=== PATIENT | male | born 1960 | race Two or more races ===

== ENCOUNTER 2018-09-15 19:11 | Emergency (ER) | payer MEDICARE, OTHER ==
[~2018-09-15] VITALS: Ht 170.2 cm; Wt 116.6 kg
[2018-09-15 20:21] LABS: BILIRUBIN,URINE NEGATIVE (NEG); CLARITY,URINE CLEAR; COLOR,URINE YELLOW; NITRITE,URINE NEGATIVE (NEG); PROTEIN,URINE NEGATIVE (NEG-TRACE); UROBILINOGEN,URINE 0.2 mg/dL (0.2 mg/dL)
[2018-09-15 20:43] LABS: RBC,URINE OCC /HPF (0-2)
[2018-09-15 20:44] LABS: BACTERIA,URINE 0 /HPF (0-FEW); SQUAMOUS EPITHELIAL CELL,UR FEW /LPF; WBC,URINE OCC /HPF (0-4)
[2018-09-15 20:52] LABS: BASO # 0.1 x10^3/uL (0.0-0.2); BASO % 1 % (0-3); EOS # 0.1 x10^3/uL (0.0-0.7); EOS % 1 % (0-3); HEMATOCRIT 39.8 % (39.0-53.0); HEMOGLOBIN 13.9 g/dL (13.0-17.5); LYMPH # 1.8 x10^3/uL (1.0-4.8); LYMPH % 19 % (24-48); MEAN CORPUSCULAR HEMOGLOBIN 31 pg (25-35); MEAN CORPUSCULAR HGB CONC 35 g/dL (31-37); MEAN CORPUSCULAR VOLUME 90 fL (79-100); MONO # 0.9 x10^3/uL (0.0-1.1); MONO % 9 % (0-9); NEUT # 6.4 x10^3uL (1.8-7.7); NEUT % 70 % (31-73); PLATELET COUNT 282 x10^3/uL (140-400); RED BLOOD COUNT 4.41 x10^6/uL (4.30-5.70); RED CELL DISTRIBUTION WIDTH 13.3 % (11.5-14.5); WHITE BLOOD COUNT 9.2 x10^3/uL (4.0-11.0)
[2018-09-15 21:07] LABS: CALCIUM 9.5 mg/dL (8.5-10.1); GFR 76.5
[2018-09-15 21:12] LABS: ALBUMIN 3.7 g/dL (3.4-5.0); DIRECT BILIRUBIN 0.1 mg/dL (0.0-0.2); TOTAL BILIRUBIN 0.3 mg/dL (0.2-1.0); TOTAL PROTEIN 7.5 g/dL (6.4-8.2)
--- NOTE | 2018-09-15 22:25 | RAD ---
LIMITED ABDOMINAL ULTRASOUND History: Right upper quadrant pain. Comparison: None. Procedure: Transabdominal ultrasound images are obtained. Findings: Examination is technically difficult secondary to patient body habitus and bowel gas. Pancreas is obscured by bowel gas. Liver is increased in echogenicity. No focal hepatic masses are identified. Right hepatic lobe measures 18.7 cm in length. Gallbladder demonstrates cholelithiasis. No gallbladder wall thickening or pericholecystic fluid is identified. Common bile duct measures normally at 5 mm in diameter. Right kidney measures 11.5 cm in length. There is no evidence of stone or hydronephrosis. IVC is poorly visualized. Impression: 1. Technically difficult study. 2. Echogenic, enlarged liver, compatible with fatty liver disease. 3. Cholelithiasis without evidence of cholecystitis. Electronically signed by: Saul Cardenas MD (09/15/2018 10:21 PM) [facility]
--- NOTE | 2018-09-15 22:49 | RAD ---
CT abdomen pelvis without intravenous contrast History: Right abdominal pain radiating to back. Comparison: CT abdomen pelvis October 12, 2010. Technique: CT of the abdomen and pelvis was performed without intravenous or oral contrast. Exposure: One or more of the following individualized dose reduction techniques were utilized for this examination: 1. Automated exposure control 2. Adjustment of the mA and/or kV according to patient size 3. Use of iterative reconstruction technique Findings: Evaluation of solid organs is limited by lack of intravenous contrast. Evaluation of enteric structures may be limited by lack of oral contrast. Liver, spleen, pancreas, and bilateral adrenal glands are unremarkable. Cholelithiasis is seen. Bilateral kidneys and ureters are free stone or obstruction. Urinary bladder is unremarkable. No free air or free fluid is seen in the abdomen or pelvis. Appendix is without evidence of inflammation. Multilevel degeneration is seen in the spine including degenerative disc disease at L5-S1. Impression: No acute abnormality identified in the abdomen or pelvis. No evidence of urinary stone. Electronically signed by: Saul Cardenas MD (09/15/2018 10:46 PM) [facility]
[2018-09-15] MEDS ORDERED: ESOM40CA PO (23:39)
[2018-09-15] MEDS ORDERED: HYDR-971 PO (23:39)
[2018-09-15 23:49] VITALS: BP 138/64
--- NOTE | 2018-09-16 00:37 | PHYS DOC ---
Past Medical History Past Medical History: Arthritis, High Cholesterol, Hypertension, Hepatitis, Other Additional Past Medical Histor: HEP C Past Surgical History: Other Additional Past Surgical Histo: HERNIA REPAIR X 3, ABD TUMOR, ESOPHAGEAL ULCER Alcohol Use: None Drug Use: None Adult General Chief Complaint Chief Complaint: FLANK PAIN HPI HPI Patient is a 58 year old male who presents with abdominal pain. The patient has been having abdominal pain which is primarily on the right side of his abdomen and the right flank over the last 2-3 weeks. Pain is been constant but has waxed and waned in intensity. He states the pain is not always worse with eating food that sometimes eating does worsen his symptoms. The patient has had no fever or chills. No nausea or vomiting. Denies blood in his urine or any other urinary complaint. The patient does have a known history of cholelithiasis but has not had cholecystitis diagnosed in the past. He is in the process of establishing care with a surgeon for an elective cholecystectomy. He denies chest pain, shortness of breath, dizziness. Review of Systems Review of Systems Constitutional: Denies fever or chills Eyes: Denies change in visual acuity HENT: Denies nasal congestion Respiratory: Denies cough or shortness of breath Cardiovascular: No additional information not addressed in HPI GI: Denies nausea or vomiting : Denies dysuria Musculoskeletal: Denies back pain Integument: Denies rash or skin lesions Neurologic: Denies headache Endocrine: Denies polyuria All other systems were reviewed and found to be within normal limits, except as documented in this note. Allergies Allergies Allergies Coded Allergies Type Severity Reaction Last Updated Verified Penicillins Allergy Intermediate 09/15/18 Yes iodine Allergy Intermediate 09/15/18 Yes Physical Exam Physical Exam Constitutional: Well developed, well nourished, no acute distress HENT: Normocephalic, atraumatic, bilateral external ears normal, oropharynx moist Eyes: PERRLA, EOMI Neck: Normal range of motion, no tenderness Cardiovascular:Heart rate regular rhythm, no murmur Lungs & Thorax: Bilateral breath sounds clear to auscultation Abdomen: Bowel sounds normal, soft, NTTP, no guarding or rebound Skin: Warm, dry, no erythema, no rash Back: No tenderness Extremities: No tenderness, no edema Neurologic: Alert and oriented X 3 Psychologic: Affect normal Current Patient Data Vital Signs Vital Signs Date Time Temp Pulse Resp B/P (MAP) Pulse Ox O2 Delivery O2 Flow Rate FiO2 09/15/18 20:00 97.7 80 20 162/75 (104) 97 Room Air 97.7 Lab Values Laboratory Tests Test 09/15/18 20:08 09/15/18 20:34 Urine Collection Type Unknown Urine Color Yellow Urine Clarity Clear Urine pH 7.0 Urine Specific [place] 1.015 Urine Protein Negative mg/dL (NEG-TRACE) Urine Glucose (UA) Negative mg/dL (NEG) Urine Ketones (Stick) Negative mg/dL (NEG) Urine Blood Negative (NEG) Urine Nitrite Negative (NEG) Urine Bilirubin Negative (NEG) Urine Urobilinogen Dipstick 0.2 mg/dL (0.2 mg/dL) Urine Leukocyte Esterase Negative (NEG) Urine RBC Occ /HPF (0-2) Urine WBC Occ /HPF (0-4) Urine Squamous Epithelial Cells Few /LPF Urine Bacteria 0 /HPF (0-FEW) Urine Mucus Slight /LPF White Blood Count 9.2 x10^3/uL (4.0-11.0) Red Blood Count 4.41 x10^6/uL (4.30-5.70) Hemoglobin 13.9 g/dL (13.0-17.5) Hematocrit 39.8 % (39.0-53.0) Mean Corpuscular Volume 90 fL (79-100) Mean Corpuscular Hemoglobin 31 pg (25-35) Mean Corpuscular Hemoglobin Concent 35 g/dL (31-37) Red Cell Distribution Width 13.3 % (11.5-14.5) Platelet Count 282 x10^3/uL (140-400) Neutrophils (%) (Auto) 70 % (31-73) Lymphocytes (%) (Auto) 19 % (24-48) L Monocytes (%) (Auto) 9 % (0-9) Eosinophils (%) (Auto) 1 % (0-3) Basophils (%) (Auto) 1 % (0-3) Neutrophils # (Auto) 6.4 x10^3uL (1.8-7.7) Lymphocytes # (Auto) 1.8 x10^3/uL (1.0-4.8) Monocytes # (Auto) 0.9 x10^3/uL (0.0-1.1) Eosinophils # (Auto) 0.1 x10^3/uL (0.0-0.7) Basophils # (Auto) 0.1 x10^3/uL (0.0-0.2) Sodium Level 139 mmol/L (136-145) Potassium Level 4.0 mmol/L (3.5-5.1) Chloride Level 102 mmol/L (98-107) Carbon Dioxide Level 29 mmol/L (21-32) Anion Gap 8 (6-14) Blood Urea Nitrogen 18 mg/dL (8-26) Creatinine 1.0 mg/dL (0.7-1.3) Estimated GFR (Cockcroft-Gault) 76.5 Glucose Level 110 mg/dL (70-99) H Calcium Level 9.5 mg/dL (8.5-10.1) Total Bilirubin 0.3 mg/dL (0.2-1.0) Direct Bilirubin 0.1 mg/dL (0.0-0.2) Aspartate Amino Transferase (AST) 27 U/L (15-37) Alanine Aminotransferase (ALT) 37 U/L (16-63) Alkaline Phosphatase 78 U/L (46-116) Total Protein 7.5 g/dL (6.4-8.2) Albumin 3.7 g/dL (3.4-5.0) Lipase 207 U/L (73-393) Laboratory Tests 09/15/18 20:34 Laboratory Tests 09/15/18 20:34 EKG EKG [] Radiology/Procedures Radiology/Procedures RUQ US: cholelithiasis without cholecystitis. Fatty liver CT abd/pelvis: no acute findings to explain his pain. Course & Med Decision Making Course & Med Decision Making Pertinent Labs and Imaging studies reviewed. (See chart for details) Patient was evaluated in the emergency department for abdominal pain. His abdominal exam was benign. The patient was found to have cholelithiasis but no cholecystitis. He was also noted to have fatty liver. CT scan was completed without contrast because the patient has an iodine allergy. There were no additional acute findings on the CT scan to explain his pain symptoms. Plan is for discharge home. The patient is given some Arvilla for severe pain although he did not require pain medication in the ER for control of his symptoms. He is also placed on twice a day Nexium dosing and referred to follow up with gastroenterology. He already has surgery appointment pending. He is advised to come back to the ER for any new or worsening symptoms. Dragon Disclaimer Dragon Disclaimer This electronic medical record was generated, in whole or in part, using a voice recognition dictation system. Departure Departure Impression: Primary Impression: Gall stones Additional Impression: Abdominal pain Disposition: 01 HOME, SELF-CARE Condition: GOOD Referrals: DEBRA CODY MD Patient Instructions: Abdominal Pain (Nonspecific), Gastritis, Adult, Easy-to- Read, Cholelithiasis, [id number], Pain Medicine Instructions, [id number] Scripts Esomeprazole Magnesium (NEXIUM CAPSULE) 40 Mg Capsule. 1 CAP PO BIDAC, #60 CAP 1 Refill Prov: UZAIR MELO DO 09/15/18 Hydrocodone/Apap 5-325 (NORCO 5-325 TABLET) 1 Each Tablet 1-2 EACH PO PRN Q6HRS PRN for severe pain, #15 as needed for pain Prov: UZAIR MELO DO 09/15/18 Problem Qualifiers UZAIR MELO DO Sep 16, 2018 00:37
== END 2018-09-15 23:55 | disposition home or self-care (01) ==
LOC: ER 19:11
DX: K80.20 Calculus of gallbladder without cholecystitis without obstruction (principal); K76.0 Fatty (change of) liver, not elsewhere classified; I10 Essential (primary) hypertension; E78.00 Pure hypercholesterolemia, unspecified; Z98.890 Other specified postprocedural states; Z86.19 Personal history of other infectious and parasitic diseases; Z87.19 Personal history of other diseases of the digestive system; Z88.0 Allergy status to penicillin; Z91.041 Radiographic dye allergy status
CPT/HCPCS: 36415; 74176; 76705; 80048; 80076; 81001; 83690; 85025; 99285

== ENCOUNTER 2019-03-04 07:32 | Inpatient (IN) | payer OTHER ==
[2019-03-04] VITALS (9 sets, daily range): BP systolic 117–145; BP diastolic 60–73
[~2019-03-04] VITALS: Ht 175.3 cm; Wt 120.2 kg
--- NOTE | 2019-03-04 07:08 | HP ---
ADMIT DATE: HISTORY OF PRESENT ILLNESS: The patient comes to me, referred by Dr. Hogan because of bloating, postprandial gas and general abdominal discomfort in the upper abdomen. The patient states this has been going on for a while. He has had colonoscopy, which was essentially normal and has this bloating and gas sensation mostly after he eats. He has had a sonogram, which showed gallstones. The history is pertinent in that he has had normal childhood diseases. He has had mesenteric enteritis, has been operated twice for that, though I do not think anything was done other than explore and biopsy. He did have a hernia after that, one done at [facility] and I repaired that. He has also had a terrific injury to his right forearm, which he has had surgery many-many years ago and his hand is a little weak, but it otherwise functions normally. ALLERGIES: THE PATIENT HAS AN ALLERGY TO PENICILLIN AND IODINE. MEDICATIONS: Does take medicine for hypertension and he also takes 125 mcg of levothyroxine. He is not certain why. He does not have a goiter. FAMILY HISTORY: Positive in that his mother had gallstones and just had surgery recently. Otherwise, no history. He does not speak Indonesian well. We got this by way of a straightener gun parts with his . SOCIAL HISTORY: He did drink a lot, was apparently drunk, but he has stopped, has cirrhosis of the liver, but does not do that anymore. PHYSICAL EXAMINATION: GENERAL: Shows an obese male in no acute distress. He was alert, oriented and had no other abnormalities at this point. HEAD, EYES, EARS, NOSE, THROAT: Grossly normal. CHEST: Clear to auscultation bilaterally. HEART: I did not hear a murmur, but the rate did appear to be slow to me, estimated to be around 60-65 beats per minute. ABDOMEN: He had the scars of previous surgery, was soft. At this point, he had no point tenderness. No localized tenderness, guarding or rebound. Bowel sounds were normal. RECTAL: Not done. EXTREMITIES: Unremarkable except for the right forearm where he had significant surgery and has scars from that. Right hand is just a little weak, but otherwise function relatively normal. IMPRESSION: 1. Hypertension. 2. I assumed hypothyroidism. 3. Obesity. 4. Mesenteric enteritis, which is why he had abdominal surgery first. 5. Chronic cholecystitis and cholelithiasis. WATSON PEREZ MD DR: JEZ/linda JOB#: [id number] / [id number] [id number]
[~2019-03-04 07:32] MED LIST: BUPIVACAINE-EPI 0.25%-1:200000 MPF 30 ML VIAL. ONE; ESOM40CA PO; HYDR-3164 PO; HYDROmorphone 2 MG/ML VIAL IV PRN; IV RINGERS,LACTATED 1000ML 1,000 ML IV SCH; LEVO125T5 PO; LIDOCAINE 1% PF 2 ML VIAL. ID PRN; LOSA-73 PO; MORPHINE SULFATE 2 MG/ML VIAL. IV PRN; ONDANSETRON PF 4 MG/2 ML VIAL. IV PRN; PROCHLORPERAZINE 10 MG/2 ML VIAL. IV PRN; fentaNYL PF VIAL 100 MCG/2 ML VIAL IV PRN
[2019-03-04] MEDS ORDERED: CLINDAMYCIN 900MG PREMIX 50 ML IV ONE (08:15)
[2019-03-04 08:28] LABS: BASO # 0.1 x10^3/uL (0.0-0.2); BASO % 1 % (0-3); EOS # 0.2 x10^3/uL (0.0-0.7); EOS % 2 % (0-3); HEMATOCRIT 41.2 % (39.0-53.0); HEMOGLOBIN 13.6 g/dL (13.0-17.5); LYMPH # 2.1 x10^3/uL (1.0-4.8); LYMPH % 23 % (24-48); MEAN CORPUSCULAR HEMOGLOBIN 30 pg (25-35); MEAN CORPUSCULAR HGB CONC 33 g/dL (31-37); MEAN CORPUSCULAR VOLUME 92 fL (79-100); MONO # 0.7 x10^3/uL (0.0-1.1); MONO % 7 % (0-9); NEUT # 6.4 x10^3uL (1.8-7.7); NEUT % 68 % (31-73); PLATELET COUNT 276 x10^3/uL (140-400); RED BLOOD COUNT 4.49 x10^6/uL (4.30-5.70); WHITE BLOOD COUNT 9.5 x10^3/uL (4.0-11.0)
[2019-03-04] MEDS ORDERED: MIDAZOLAM HCL/PF 2 MG/2 ML VIAL. ONE (08:30)
[2019-03-04] MEDS ORDERED: ROCURONIUM 50 MG/5 ML VIAL. ONE ×2 (08:30→10:43)
[2019-03-04] MEDS ORDERED: DEXAMETHASONE SOD PHOS 20 MG/5 ML VIAL. ONE (08:30)
[2019-03-04] MEDS ORDERED: LIDOCAINE 2% PF 5 ML VIAL. ONE (08:30)
[2019-03-04] MEDS ORDERED: fentaNYL PF VIAL 100 MCG/2 ML VIAL ONE (08:30)
[2019-03-04] MEDS ORDERED: PROPOFOL 20 ML IV ONE (08:30)
[2019-03-04] MEDS ORDERED: ONDANSETRON PF 4 MG/2 ML VIAL. ONE (08:30)
--- NOTE | 2019-03-04 08:37 | PDOC ---
SURGICAL PROGRESS NOTE Subjective Surgeon..............................Souleymane Preop Diagnosis..................chronic Cholecystitis and Cholelithiasis Postop Diagnosis.................same Anesthesia..........................general Procedure...........................cholecystectomy with op cholangiogram with massive enterolysis Blood loss...........................25 cc Drains.................................none Fluids.................................see anesthesia sheet Condition............................satisfactory Vital Signs Vital Signs Date Time Temp Pulse Resp B/P (MAP) Pulse Ox O2 Delivery O2 Flow Rate FiO2 03/04/19 08:02 97.0 64 20 154/69 97 Room Air 97.0 WATSON PEREZ MD Mar 04, 2019 08:37
[2019-03-04 08:41] LABS: PROTHROMBIN TIME PATIENT 12.5 SEC (11.7-14.0)
[2019-03-04 08:51] LABS: CALCIUM 8.6 mg/dL (8.5-10.1); CREATININE 1.1 mg/dL (0.7-1.3); GFR 68.5; POTASSIUM 4.1 mmol/L (3.5-5.1)
[2019-03-04] MEDS: IOHEXOL 300 MG/ML 100ML VIAL. ONE ×2 (08:56→12:54)
[2019-03-04 08:58] LABS: ALBUMIN 3.8 g/dL (3.4-5.0); ALBUMIN/GLOBULIN RATIO 1.2 (1.0-1.7); TOTAL BILIRUBIN 0.3 mg/dL (0.2-1.0); TOTAL PROTEIN 6.9 g/dL (6.4-8.2)
[2019-03-04] MEDS ORDERED: SUCCINYLCHOLINE 200 MG/10 ML VIAL. ONE (08:59)
--- NOTE | 2019-03-04 09:24 | PDOC ---
SURGICAL PROGRESS NOTE Subjective No change in dictated H&P. Vital Signs Vital Signs Date Time Temp Pulse Resp B/P (MAP) Pulse Ox O2 Delivery O2 Flow Rate FiO2 03/04/19 08:02 97.0 64 20 154/69 97 Room Air 97.0 Labs Laboratory Tests Test 03/04/19 08:12 White Blood Count 9.5 x10^3/uL (4.0-11.0) Red Blood Count 4.49 x10^6/uL (4.30-5.70) Hemoglobin 13.6 g/dL (13.0-17.5) Hematocrit 41.2 % (39.0-53.0) Mean Corpuscular Volume 92 fL (79-100) Mean Corpuscular Hemoglobin 30 pg (25-35) Mean Corpuscular Hemoglobin Concent 33 g/dL (31-37) Red Cell Distribution Width 14.0 % (11.5-14.5) Platelet Count 276 x10^3/uL (140-400) Neutrophils (%) (Auto) 68 % (31-73) Lymphocytes (%) (Auto) 23 % (24-48) Monocytes (%) (Auto) 7 % (0-9) Eosinophils (%) (Auto) 2 % (0-3) Basophils (%) (Auto) 1 % (0-3) Neutrophils # (Auto) 6.4 x10^3uL (1.8-7.7) Lymphocytes # (Auto) 2.1 x10^3/uL (1.0-4.8) Monocytes # (Auto) 0.7 x10^3/uL (0.0-1.1) Eosinophils # (Auto) 0.2 x10^3/uL (0.0-0.7) Basophils # (Auto) 0.1 x10^3/uL (0.0-0.2) Prothrombin Time 12.5 SEC (11.7-14.0) Prothromb Time International Ratio 1.0 (0.8-1.1) Sodium Level 140 mmol/L (136-145) Potassium Level 4.1 mmol/L (3.5-5.1) Chloride Level 103 mmol/L (98-107) Carbon Dioxide Level 24 mmol/L (21-32) Anion Gap 13 (6-14) Blood Urea Nitrogen 17 mg/dL (8-26) Creatinine 1.1 mg/dL (0.7-1.3) Estimated GFR (Cockcroft-Gault) 68.5 BUN/Creatinine Ratio 15 (6-20) Glucose Level 115 mg/dL (70-99) Calcium Level 8.6 mg/dL (8.5-10.1) Total Bilirubin 0.3 mg/dL (0.2-1.0) Aspartate Amino Transf (AST/SGOT) 22 U/L (15-37) Alanine Aminotransferase (ALT/SGPT) 30 U/L (16-63) Alkaline Phosphatase 95 U/L (46-116) Total Protein 6.9 g/dL (6.4-8.2) Albumin 3.8 g/dL (3.4-5.0) Albumin/Globulin Ratio 1.2 (1.0-1.7) Laboratory Tests Test 03/04/19 08:12 White Blood Count 9.5 x10^3/uL (4.0-11.0) Red Blood Count 4.49 x10^6/uL (4.30-5.70) Hemoglobin 13.6 g/dL (13.0-17.5) Hematocrit 41.2 % (39.0-53.0) Mean Corpuscular Volume 92 fL (79-100) Mean Corpuscular Hemoglobin 30 pg (25-35) Mean Corpuscular Hemoglobin Concent 33 g/dL (31-37) Red Cell Distribution Width 14.0 % (11.5-14.5) Platelet Count 276 x10^3/uL (140-400) Neutrophils (%) (Auto) 68 % (31-73) Lymphocytes (%) (Auto) 23 % (24-48) Monocytes (%) (Auto) 7 % (0-9) Eosinophils (%) (Auto) 2 % (0-3) Basophils (%) (Auto) 1 % (0-3) Neutrophils # (Auto) 6.4 x10^3uL (1.8-7.7) Lymphocytes # (Auto) 2.1 x10^3/uL (1.0-4.8) Monocytes # (Auto) 0.7 x10^3/uL (0.0-1.1) Eosinophils # (Auto) 0.2 x10^3/uL (0.0-0.7) Basophils # (Auto) 0.1 x10^3/uL (0.0-0.2) Prothrombin Time 12.5 SEC (11.7-14.0) Prothromb Time International Ratio 1.0 (0.8-1.1) Sodium Level 140 mmol/L (136-145) Potassium Level 4.1 mmol/L (3.5-5.1) Chloride Level 103 mmol/L (98-107) Carbon Dioxide Level 24 mmol/L (21-32) Anion Gap 13 (6-14) Blood Urea Nitrogen 17 mg/dL (8-26) Creatinine 1.1 mg/dL (0.7-1.3) Estimated GFR (Cockcroft-Gault) 68.5 BUN/Creatinine Ratio 15 (6-20) Glucose Level 115 mg/dL (70-99) Calcium Level 8.6 mg/dL (8.5-10.1) Total Bilirubin 0.3 mg/dL (0.2-1.0) Aspartate Amino Transf (AST/SGOT) 22 U/L (15-37) Alanine Aminotransferase (ALT/SGPT) 30 U/L (16-63) Alkaline Phosphatase 95 U/L (46-116) Total Protein 6.9 g/dL (6.4-8.2) Albumin 3.8 g/dL (3.4-5.0) Albumin/Globulin Ratio 1.2 (1.0-1.7) WATSON PEREZ MD Mar 04, 2019 09:24
[2019-03-04] MEDS ORDERED: ePHEDrine PF IN SALINE 50 MG/10 ML SYRINGE. IV ONE (09:39)
[2019-03-04] MEDS ORDERED: MORPHINE SULFATE 10 MG/ML VIAL. ONE (10:43)
[2019-03-04] MEDS ORDERED: SEVOFLURANE > 120 MINUTES. IH ONE (10:46)
[2019-03-04] MEDS ORDERED: GLYCOPYRROLATE 1 MG/5 ML VIAL. ONE (10:46)
[2019-03-04] MEDS ORDERED: KETOROLAC 30 MG/ML INJ FOR OR. INJ ONE (10:46)
[2019-03-04] MEDS ORDERED: NEOSTIGMINE METHYLSULFATE 5 MG/5 ML SYRINGE. ONE (10:47)
[2019-03-04] MEDS ORDERED: BUPIVACAINE-EPI 0.25%-1:200000 MPF 30 ML VIAL. ONE ×2 (11:34→11:37)
--- NOTE | 2019-03-04 11:54 | RAD ---
Intraoperative cholangiogram, 2 views, 03/04/2019: HISTORY: Cholecystectomy 2 spot films from surgery are presented for review. 0.17 minutes of fluoroscopy time was utilized. Contrast has been injected into the cystic duct remnant. There is good flow contrast into the duodenum at the ampulla. No filling defect is seen in the common duct to suggest a retained calculus. The incompletely opacified intrahepatic ducts are unremarkable. IMPRESSION: No significant abnormality is detected. Electronically signed by: Rico Hood MD (03/04/2019 11:50 AM) [facility]
[2019-03-04] MEDS ORDERED: ONDANSETRON PF 4 MG/2 ML VIAL. IV PRN (13:30)
[2019-03-04] MEDS ORDERED: 0.9 % SODIUM CHLORIDE 10 ML DISP.SYRIN. IV PRN (13:30)
[2019-03-04] MEDS ORDERED: KETOROLAC 15 MG/ML VIAL. IV PRN (13:30)
[2019-03-04] MEDS: POTASSIUM CL 20MEQ-0.45% NACL 1,000 ML IV SCH ×2 (14:38→20:29)
--- NOTE | 2019-03-04 15:00 | NUR ---
Pt arrived to unit at 1425, by bed, from PACU. Report received from JAMESON Gutierrez. Pt's spouse present on admission. Bed in low position, call light in reach, [place] catheter present, patent, draining clear yellow urine. Large dressing to abdomen CDI, binder set at bedside, will assist Pt to put it on once he is more alert and awake. NG to R nare clamped and secured. Pt to be NPO, IVFs infusing. Dr Victor called to notify of consult for medical management. Admission assessment in progress.
[2019-03-04] MEDS: CLINDAMYCIN 600MG PREMIX 50 ML IV SCH (17:24)
[2019-03-04] MEDS: FAMOTIDINE 20 MG/2 ML VIAL IVP SCH (20:30)
[2019-03-04] MEDS: PHENOL ORAL SPRAY 177ML BOTTLE. PO PRN (22:25)
[2019-03-05] MEDS: CLINDAMYCIN 600MG PREMIX 50 ML IV SCH ×2 (00:50→09:56)
[2019-03-05] MEDS: PHENOL ORAL SPRAY 177ML BOTTLE. PO PRN (00:51)
--- NOTE | 2019-03-05 01:55 | OP ---
DATE OF SURGERY: 03/04/2019 SURGEON: Peter Perez MD PREOPERATIVE DIAGNOSES: Chronic cholecystitis and cholelithiasis with massive intra-abdominal adhesions. POSTOPERATIVE DIAGNOSES: Chronic cholecystitis and cholelithiasis with massive intra-abdominal adhesions. ANESTHESIA: General. PROCEDURE: Laparotomy with cholecystectomy, operative cholangiogram and massive enterolysis. TECHNIQUE: Under general anesthesia, the patient was properly prepped and draped in a routine fashion. He had multiple abdominal surgeries including surgery twice for mesenteric enteritis, which created a lot of adhesions. He also has had hernia repairs. As such, we decided not to try to do a laparoscopic cholecystectomy and went straight to the open cholecystectomy as discussed with he and his prior to the surgery. As such, a subcostal incision was made in standard fashion in the right upper quadrant, carried down through the skin using a #10 blade. We went through the subcutaneous down to the fascia. We then divided the fascia with a #15 blade and it was obvious that the patient had a very wide rectus muscle. We went medially to the lateral border of the rectus muscle, which was very wide. We then placed a finger under the muscle and divided the muscle with cautery. We then entered the peritoneum as we divided this very gingerly, but pulling up with DeBakey forceps and divided the peritoneum. He had a lot of adhesions and these had to be taken down before we could even see the liver. We had difficulty getting to the gallbladder, but finally cleared. We used a lot of finger dissection, Metzenbaum scissors to cut the adhesions and were able to identify the gallbladder. We tried to go down to the hilum of the gallbladder where the cystic duct was, but there was just too much scar. As such, we thought it would be safe to go from above down and as such, we made a small incision in the peritoneum covering the gallbladder and then slowly went down both sides of the gallbladder with Metzenbaum scissors and also cautery and then shelled the gallbladder out of the gallbladder fossa. There were adhesions and these had to be taken down and it was quite difficult to do this procedure in this obese man who has had previous multiple abdominal surgeries and had this much adhesions. We slowly identified, went down to the gallbladder dividing only the tissue going to the gallbladder. We identified the cystic artery, tied it twice on the patient's side and clipped it and divided it. We then were able to see and isolate the cystic duct when around this with 2-0 silk to keep any stones from going down there. We then had the gallbladder completely from the other tissues after we have placed a Bookwalter retractor there and clamped the very distal part the gallbladder next to the cystic duct leaving a stump of the gallbladder about a centimeter in size. We then amputated the gallbladder after we clamped its distal portion with a Pean clamp. This was sent to the lab. The Kishan clamp was placed on the edges of the cystic gallbladder stump and the stones there were aspirated. We then milked the cystic duct back, found it had no stones and then passed a catheter. They did not have the appropriate catheter. As such, we had used the catheter we use for laparoscopic procedures and put it in the cystic duct stump and clipped it in place and got cholangiogram. Dr. Hood, the radiologist said the cholangiograms were normal. There was no evidence of any filling defects, spilling or extravasation and I went freely into the duodenum without problem. As such, the clip was then removed as the Bookwalter was placed back in the abdomen and we then tied the cystic duct with 0 silk suture and also clipped it. We then excised the remainder of the stump of the gallbladder. The cystic duct was then closed and there was no bile leak and no injury to any other intra-abdominal structures. The procedure was now terminated. Seprafilm was placed in the abdomen as the contents were allowed to go back up to the underside of the liver in its normal location and we then placed Seprafilm on the omentum and other tissues that were under the fascia. We pulled up on the peritoneum and oblique and rectus muscle fascia and placed Seprafilm there also. We closed the posterior fascia using 0 Prolene and the anterior fascia was closed with #1 Prolene suture. The wound was then irrigated with saline and each layer had been anesthetized with 0.5% Marcaine and epinephrine. After irrigating the subcutaneous, we then approximated the subcutaneous using 3-0 and 4-0 Vicryl and the skin was closed using skin stapler. The procedure was now terminated as sterile dressings were applied. The blood loss was probably about 70-75 mL. Fluids given can be obtained from the anesthesia sheet. No drains were used. CONDITION OF THE PATIENT: Satisfactory as he has returned to the recovery room. PETER PEREZ MD DR: Nichole JOB#: [id number] / [id number]
[2019-03-05 03:00] VITALS: BP 134/59
[2019-03-05 04:33] LABS: BASO % 0 % (0-3); EOS % 0 % (0-3); HEMOGLOBIN 12.5 g/dL (13.0-17.5); LYMPH # 0.4 x10^3/uL (1.0-4.8); LYMPH % 2 % (24-48); MEAN CORPUSCULAR HEMOGLOBIN 30 pg (25-35); MEAN CORPUSCULAR HGB CONC 33 g/dL (31-37); MEAN CORPUSCULAR VOLUME 91 fL (79-100); MONO # 1.2 x10^3/uL (0.0-1.1); MONO % 7 % (0-9); NEUT # 15.2 x10^3uL (1.8-7.7); NEUT % 91 % (31-73); PLATELET COUNT 252 x10^3/uL (140-400); RED BLOOD COUNT 4.19 x10^6/uL (4.30-5.70); RED CELL DISTRIBUTION WIDTH 13.7 % (11.5-14.5); WHITE BLOOD COUNT 16.8 x10^3/uL (4.0-11.0)
[2019-03-05 05:02] LABS: ALBUMIN 3.3 g/dL (3.4-5.0); ALBUMIN/GLOBULIN RATIO 0.9 (1.0-1.7); CALCIUM 8.4 mg/dL (8.5-10.1); GFR 76.5; POTASSIUM 4.3 mmol/L (3.5-5.1); TOTAL BILIRUBIN 0.7 mg/dL (0.2-1.0); TOTAL PROTEIN 6.9 g/dL (6.4-8.2)
[2019-03-05] MEDS: POTASSIUM CL 20MEQ-0.45% NACL 1,000 ML IV SCH ×3 (05:30→21:54)
[2019-03-05 06:03] LABS: % BANDS 3 % (0-9); % LYMPHS 2 % (24-48); % MONOS 3 % (0-10); % SEGS 92 % (35-66)
[2019-03-05 06:04] LABS: PLT ESTIMATE ADEQUATE (ADEQUATE)
[2019-03-05] MEDS: MORPHINE SULFATE/PF 30 ML IV PRN (06:07)
[2019-03-05 06:39] VITALS: BP 132/62
--- NOTE | 2019-03-05 09:01 | PDOC ---
SURGICAL PROGRESS NOTE Subjective POD #1 Alert and doing well with the expected incisional pain. No fever and Liver functions OK. And soft with incisional mendieta. to touch. Will ambulate and walk and remove NG. [place] causing a lot of discomfort and will remove this also. No GI functio nand will keep NPO. Vital Signs Vital Signs Date Time Temp Pulse Resp B/P (MAP) Pulse Ox O2 Delivery O2 Flow Rate FiO2 03/05/19 06:39 98.3 64 16 132/62 (85) 96 Room Air 2.0 98.3 I&O Intake and Output 03/05/19 07:00 Intake Total 1900 ml Output Total 2750 ml Balance -850 ml Intake Oral 0 ml IV Total 1900 ml Output Urine Total 2600 ml Estimated Blood Loss 150 ml Labs Laboratory Tests Test 03/04/19 08:12 03/05/19 04:10 White Blood Count 9.5 x10^3/uL (4.0-11.0) 16.8 x10^3/uL (4.0-11.0) Red Blood Count 4.49 x10^6/uL (4.30-5.70) 4.19 x10^6/uL (4.30-5.70) Hemoglobin 13.6 g/dL (13.0-17.5) 12.5 g/dL (13.0-17.5) Hematocrit 41.2 % (39.0-53.0) 38.0 % (39.0-53.0) Mean Corpuscular Volume 92 fL (79-100) 91 fL (79-100) Mean Corpuscular Hemoglobin 30 pg (25-35) 30 pg (25-35) Mean Corpuscular Hemoglobin Concent 33 g/dL (31-37) 33 g/dL (31-37) Red Cell Distribution Width 14.0 % (11.5-14.5) 13.7 % (11.5-14.5) Platelet Count 276 x10^3/uL (140-400) 252 x10^3/uL (140-400) Neutrophils (%) (Auto) 68 % (31-73) 91 % (31-73) Lymphocytes (%) (Auto) 23 % (24-48) 2 % (24-48) Monocytes (%) (Auto) 7 % (0-9) 7 % (0-9) Eosinophils (%) (Auto) 2 % (0-3) 0 % (0-3) Basophils (%) (Auto) 1 % (0-3) 0 % (0-3) Neutrophils # (Auto) 6.4 x10^3uL (1.8-7.7) 15.2 x10^3uL (1.8-7.7) Lymphocytes # (Auto) 2.1 x10^3/uL (1.0-4.8) 0.4 x10^3/uL (1.0-4.8) Monocytes # (Auto) 0.7 x10^3/uL (0.0-1.1) 1.2 x10^3/uL (0.0-1.1) Eosinophils # (Auto) 0.2 x10^3/uL (0.0-0.7) 0.0 x10^3/uL (0.0-0.7) Basophils # (Auto) 0.1 x10^3/uL (0.0-0.2) 0.0 x10^3/uL (0.0-0.2) Prothrombin Time 12.5 SEC (11.7-14.0) Prothromb Time International Ratio 1.0 (0.8-1.1) Sodium Level 140 mmol/L (136-145) 140 mmol/L (136-145) Potassium Level 4.1 mmol/L (3.5-5.1) 4.3 mmol/L (3.5-5.1) Chloride Level 103 mmol/L (98-107) 104 mmol/L (98-107) Carbon Dioxide Level 24 mmol/L (21-32) 25 mmol/L (21-32) Anion Gap 13 (6-14) 11 (6-14) Blood Urea Nitrogen 17 mg/dL (8-26) 14 mg/dL (8-26) Creatinine 1.1 mg/dL (0.7-1.3) 1.0 mg/dL (0.7-1.3) Estimated GFR (Cockcroft-Gault) 68.5 76.5 BUN/Creatinine Ratio 15 (6-20) 14 (6-20) Glucose Level 115 mg/dL (70-99) 148 mg/dL (70-99) Calcium Level 8.6 mg/dL (8.5-10.1) 8.4 mg/dL (8.5-10.1) Total Bilirubin 0.3 mg/dL (0.2-1.0) 0.7 mg/dL (0.2-1.0) Aspartate Amino Transf (AST/SGOT) 22 U/L (15-37) 48 U/L (15-37) Alanine Aminotransferase (ALT/SGPT) 30 U/L (16-63) 76 U/L (16-63) Alkaline Phosphatase 95 U/L (46-116) 83 U/L (46-116) Total Protein 6.9 g/dL (6.4-8.2) 6.9 g/dL (6.4-8.2) Albumin 3.8 g/dL (3.4-5.0) 3.3 g/dL (3.4-5.0) Albumin/Globulin Ratio 1.2 (1.0-1.7) 0.9 (1.0-1.7) Segmented Neutrophils % 92 % (35-66) Band Neutrophils % 3 % (0-9) Lymphocytes % 2 % (24-48) Monocytes % 3 % (0-10) Platelet Estimate Adequate (ADEQUATE) Laboratory Tests Test 03/05/19 04:10 White Blood Count 16.8 x10^3/uL (4.0-11.0) Red Blood Count 4.19 x10^6/uL (4.30-5.70) Hemoglobin 12.5 g/dL (13.0-17.5) Hematocrit 38.0 % (39.0-53.0) Mean Corpuscular Volume 91 fL (79-100) Mean Corpuscular Hemoglobin 30 pg (25-35) Mean Corpuscular Hemoglobin Concent 33 g/dL (31-37) Red Cell Distribution Width 13.7 % (11.5-14.5) Platelet Count 252 x10^3/uL (140-400) Neutrophils (%) (Auto) 91 % (31-73) Lymphocytes (%) (Auto) 2 % (24-48) Monocytes (%) (Auto) 7 % (0-9) Eosinophils (%) (Auto) 0 % (0-3) Basophils (%) (Auto) 0 % (0-3) Neutrophils # (Auto) 15.2 x10^3uL (1.8-7.7) Lymphocytes # (Auto) 0.4 x10^3/uL (1.0-4.8) Monocytes # (Auto) 1.2 x10^3/uL (0.0-1.1) Eosinophils # (Auto) 0.0 x10^3/uL (0.0-0.7) Basophils # (Auto) 0.0 x10^3/uL (0.0-0.2) Segmented Neutrophils % 92 % (35-66) Band Neutrophils % 3 % (0-9) Lymphocytes % 2 % (24-48) Monocytes % 3 % (0-10) Platelet Estimate Adequate (ADEQUATE) Sodium Level 140 mmol/L (136-145) Potassium Level 4.3 mmol/L (3.5-5.1) Chloride Level 104 mmol/L (98-107) Carbon Dioxide Level 25 mmol/L (21-32) Anion Gap 11 (6-14) Blood Urea Nitrogen 14 mg/dL (8-26) Creatinine 1.0 mg/dL (0.7-1.3) Estimated GFR (Cockcroft-Gault) 76.5 BUN/Creatinine Ratio 14 (6-20) Glucose Level 148 mg/dL (70-99) Calcium Level 8.4 mg/dL (8.5-10.1) Total Bilirubin 0.7 mg/dL (0.2-1.0) Aspartate Amino Transf (AST/SGOT) 48 U/L (15-37) Alanine Aminotransferase (ALT/SGPT) 76 U/L (16-63) Alkaline Phosphatase 83 U/L (46-116) Total Protein 6.9 g/dL (6.4-8.2) Albumin 3.3 g/dL (3.4-5.0) Albumin/Globulin Ratio 0.9 (1.0-1.7) WATSON PEREZ MD Mar 05, 2019 09:01
[2019-03-05] MEDS: FAMOTIDINE 20 MG/2 ML VIAL IVP SCH ×2 (09:56→21:20)
[2019-03-05 11:00] VITALS: BP 122/54
--- NOTE | 2019-03-05 11:47 | PDOC ---
Provider Note Provider Note Pt seen, medical consult dictated.#[id number] CATHI JORGE MD Mar 05, 2019 11:47
[2019-03-05 15:00] VITALS: BP 108/52
[2019-03-05 19:00] VITALS: BP 108/52
[2019-03-05 23:00] VITALS: BP 129/72
--- NOTE | 2019-03-06 01:36 | CONS ---
DATE OF CONSULTATION: LOCATION: [facility] ATTENDING PHYSICIAN: Dr. Comer. REASON FOR ADMISSION: Laparotomy for symptomatic gallstones REASON FOR CONSULTATION: The patient has hypertension, hypothyroidism. HISTORY OF PRESENT ILLNESS: The patient is a 58-year-old male, patient of Dr. Hogan, had seen Dr. Comer for abdominal pain, was found to have symptomatic gallstones. He had a complete GI workup including EGD, colonoscopy did not show cause for abdominal pain. The patient was admitted to the hospital, had a laparotomy, had a gallbladder surgery yesterday. I was asked to see for medical management, hypertension, hypothyroidism. PAST MEDICAL HISTORY: Hypertension, hypothyroidism, and obesity. PAST SURGICAL HISTORY: He had EGD colon. He also had enteritis in the past, adhesions and he also had work injury, had skin reconstructive surgery from work-related in the right upper extremity. ALLERGIES: PENICILLIN AND IODINE. MEDICATIONS: He takes losartan, Synthroid 175 mcg daily. FAMILY HISTORY: Gallstones. SOCIAL HISTORY: Used to drink in the past, but does not smoke. REVIEW OF SYSTEMS: Denies any chest pain. PHYSICAL EXAMINATION: VITAL SIGNS: Today, temperature 98, pulse 64, respirations 16, blood pressure 132/62, 96% on room air. HEENT: Head is atraumatic. Pupils equal. Oral cavity: No congestion. NG tube was removed this morning. NECK: Supple. CHEST: Symmetrical. CARDIOVASCULAR: S1, S2. LUNGS: Clear to auscultation. ABDOMEN: Dressing in the right upper quadrant. I did not remove the dressing. GENITOURINARY: Scrotum, [place] was removed this morning. EXTREMITIES: No calf tenderness, no edema. The patient has skin vitiligo and both upper and lower extremities have a surgical scar in the right forearm from work-related injury long time back. LABORATORY DATA: Shows a white count of 9 on admission, went up to 17 today after the surgery. Hemoglobin 13, platelets 276. INR 1.0. Electrolytes show sodium 140, potassium 4.1, chloride 103, bicarbonate 24, BUN 70, creatinine 1.1, glucose 115. LFTs were normal. Cholangiogram operative, no significant abnormalities. FINAL DIAGNOSES: 1. The patient had a chronic cholecystitis with gallstones with massive intra-abdominal adhesions. The patient underwent laparotomy with cholecystectomy, enterolysis. 2. Hypertension. 3. Hypothyroidism. 4. Vitiligo. 5. Obesity. PLAN: At this time, was admit to the hospital. The patient had NG tube, [place] removed. PT, OT. The patient is on losartan for blood pressure, is under good control and Synthroid, we will change it to IV while the patient is n.p.o., change it to oral later on. DVT prevention. We will do incentive spirometry. Again, thank you, Dr. Comer. CATHI JORGE MD DR: HERNESTO/linda JOB#: [id number] / [id number] WATSON Summers MD
[2019-03-06 03:00] VITALS: BP 127/54
[2019-03-06] MEDS: POTASSIUM CL 20MEQ-0.45% NACL 1,000 ML IV SCH ×2 (05:28→16:00)
[2019-03-06 06:13] LABS: BASO % 0 % (0-3); EOS % 0 % (0-3); HEMOGLOBIN 11.5 g/dL (13.0-17.5); LYMPH # 1.4 x10^3/uL (1.0-4.8); LYMPH % 14 % (24-48); MEAN CORPUSCULAR HEMOGLOBIN 30 pg (25-35); MEAN CORPUSCULAR HGB CONC 33 g/dL (31-37); MEAN CORPUSCULAR VOLUME 92 fL (79-100); MONO % 10 % (0-9); NEUT # 7.9 x10^3uL (1.8-7.7); NEUT % 76 % (31-73); PLATELET COUNT 224 x10^3/uL (140-400); RED BLOOD COUNT 3.81 x10^6/uL (4.30-5.70); RED CELL DISTRIBUTION WIDTH 14.2 % (11.5-14.5); WHITE BLOOD COUNT 10.4 x10^3/uL (4.0-11.0)
[2019-03-06 06:42] LABS: ALBUMIN 2.8 g/dL (3.4-5.0); ALBUMIN/GLOBULIN RATIO 0.8 (1.0-1.7); CALCIUM 8.4 mg/dL (8.5-10.1); GFR 76.5; POTASSIUM 4.2 mmol/L (3.5-5.1); TOTAL BILIRUBIN 0.6 mg/dL (0.2-1.0); TOTAL PROTEIN 6.5 g/dL (6.4-8.2)
[2019-03-06 07:00] VITALS: BP 110/60
[2019-03-06] MEDS: FAMOTIDINE 20 MG/2 ML VIAL IVP SCH ×2 (08:05→20:47)
[2019-03-06] MEDS: MORPHINE SULFATE/PF 30 ML IV PRN (09:56)
--- NOTE | 2019-03-06 10:24 | PDOC ---
SURGICAL PROGRESS NOTE Subjective POD#2 doing better and is up and walking without problem. Still has the expected incisional pain. will change dressing in am and will start clear liquids. copntinue to support and ambulate. Vital Signs Vital Signs Date Time Temp Pulse Resp B/P (MAP) Pulse Ox O2 Delivery O2 Flow Rate FiO2 03/06/19 09:56 Room Air 03/06/19 07:00 97.7 64 16 110/60 (77) 95 2.0 97.7 I&O Intake and Output 03/06/19 07:00 Output Total 900 ml Balance -900 ml Output Urine Total 900 ml Labs Laboratory Tests Test 03/05/19 04:10 03/06/19 05:30 White Blood Count 16.8 x10^3/uL (4.0-11.0) 10.4 x10^3/uL (4.0-11.0) Red Blood Count 4.19 x10^6/uL (4.30-5.70) 3.81 x10^6/uL (4.30-5.70) Hemoglobin 12.5 g/dL (13.0-17.5) 11.5 g/dL (13.0-17.5) Hematocrit 38.0 % (39.0-53.0) 35.0 % (39.0-53.0) Mean Corpuscular Volume 91 fL (79-100) 92 fL (79-100) Mean Corpuscular Hemoglobin 30 pg (25-35) 30 pg (25-35) Mean Corpuscular Hemoglobin Concent 33 g/dL (31-37) 33 g/dL (31-37) Red Cell Distribution Width 13.7 % (11.5-14.5) 14.2 % (11.5-14.5) Platelet Count 252 x10^3/uL (140-400) 224 x10^3/uL (140-400) Neutrophils (%) (Auto) 91 % (31-73) 76 % (31-73) Lymphocytes (%) (Auto) 2 % (24-48) 14 % (24-48) Monocytes (%) (Auto) 7 % (0-9) 10 % (0-9) Eosinophils (%) (Auto) 0 % (0-3) 0 % (0-3) Basophils (%) (Auto) 0 % (0-3) 0 % (0-3) Neutrophils # (Auto) 15.2 x10^3uL (1.8-7.7) 7.9 x10^3uL (1.8-7.7) Lymphocytes # (Auto) 0.4 x10^3/uL (1.0-4.8) 1.4 x10^3/uL (1.0-4.8) Monocytes # (Auto) 1.2 x10^3/uL (0.0-1.1) 1.0 x10^3/uL (0.0-1.1) Eosinophils # (Auto) 0.0 x10^3/uL (0.0-0.7) 0.0 x10^3/uL (0.0-0.7) Basophils # (Auto) 0.0 x10^3/uL (0.0-0.2) 0.0 x10^3/uL (0.0-0.2) Segmented Neutrophils % 92 % (35-66) Band Neutrophils % 3 % (0-9) Lymphocytes % 2 % (24-48) Monocytes % 3 % (0-10) Platelet Estimate Adequate (ADEQUATE) Sodium Level 140 mmol/L (136-145) 138 mmol/L (136-145) Potassium Level 4.3 mmol/L (3.5-5.1) 4.2 mmol/L (3.5-5.1) Chloride Level 104 mmol/L (98-107) 104 mmol/L (98-107) Carbon Dioxide Level 25 mmol/L (21-32) 27 mmol/L (21-32) Anion Gap 11 (6-14) 7 (6-14) Blood Urea Nitrogen 14 mg/dL (8-26) 16 mg/dL (8-26) Creatinine 1.0 mg/dL (0.7-1.3) 1.0 mg/dL (0.7-1.3) Estimated GFR (Cockcroft-Gault) 76.5 76.5 BUN/Creatinine Ratio 14 (6-20) 16 (6-20) Glucose Level 148 mg/dL (70-99) 102 mg/dL (70-99) Calcium Level 8.4 mg/dL (8.5-10.1) 8.4 mg/dL (8.5-10.1) Total Bilirubin 0.7 mg/dL (0.2-1.0) 0.6 mg/dL (0.2-1.0) Aspartate Amino Transf (AST/SGOT) 48 U/L (15-37) 32 U/L (15-37) Alanine Aminotransferase (ALT/SGPT) 76 U/L (16-63) 55 U/L (16-63) Alkaline Phosphatase 83 U/L (46-116) 74 U/L (46-116) Total Protein 6.9 g/dL (6.4-8.2) 6.5 g/dL (6.4-8.2) Albumin 3.3 g/dL (3.4-5.0) 2.8 g/dL (3.4-5.0) Albumin/Globulin Ratio 0.9 (1.0-1.7) 0.8 (1.0-1.7) Laboratory Tests Test 03/06/19 05:30 White Blood Count 10.4 x10^3/uL (4.0-11.0) Red Blood Count 3.81 x10^6/uL (4.30-5.70) Hemoglobin 11.5 g/dL (13.0-17.5) Hematocrit 35.0 % (39.0-53.0) Mean Corpuscular Volume 92 fL (79-100) Mean Corpuscular Hemoglobin 30 pg (25-35) Mean Corpuscular Hemoglobin Concent 33 g/dL (31-37) Red Cell Distribution Width 14.2 % (11.5-14.5) Platelet Count 224 x10^3/uL (140-400) Neutrophils (%) (Auto) 76 % (31-73) Lymphocytes (%) (Auto) 14 % (24-48) Monocytes (%) (Auto) 10 % (0-9) Eosinophils (%) (Auto) 0 % (0-3) Basophils (%) (Auto) 0 % (0-3) Neutrophils # (Auto) 7.9 x10^3uL (1.8-7.7) Lymphocytes # (Auto) 1.4 x10^3/uL (1.0-4.8) Monocytes # (Auto) 1.0 x10^3/uL (0.0-1.1) Eosinophils # (Auto) 0.0 x10^3/uL (0.0-0.7) Basophils # (Auto) 0.0 x10^3/uL (0.0-0.2) Sodium Level 138 mmol/L (136-145) Potassium Level 4.2 mmol/L (3.5-5.1) Chloride Level 104 mmol/L (98-107) Carbon Dioxide Level 27 mmol/L (21-32) Anion Gap 7 (6-14) Blood Urea Nitrogen 16 mg/dL (8-26) Creatinine 1.0 mg/dL (0.7-1.3) Estimated GFR (Cockcroft-Gault) 76.5 BUN/Creatinine Ratio 16 (6-20) Glucose Level 102 mg/dL (70-99) Calcium Level 8.4 mg/dL (8.5-10.1) Total Bilirubin 0.6 mg/dL (0.2-1.0) Aspartate Amino Transf (AST/SGOT) 32 U/L (15-37) Alanine Aminotransferase (ALT/SGPT) 55 U/L (16-63) Alkaline Phosphatase 74 U/L (46-116) Total Protein 6.5 g/dL (6.4-8.2) Albumin 2.8 g/dL (3.4-5.0) Albumin/Globulin Ratio 0.8 (1.0-1.7) WATSON PEREZ MD Mar 06, 2019 10:24
--- NOTE | 2019-03-06 10:28 | PDOC ---
PROGRESS NOTES Subjective Subjective feeling better , ambulating in hallway Objective Objective Vital Signs Date Time Temp Pulse Resp B/P (MAP) Pulse Ox O2 Delivery O2 Flow Rate FiO2 03/06/19 09:56 Room Air 03/06/19 07:00 97.7 64 16 110/60 (77) 95 2.0 97.7 Intake and Output 03/06/19 07:00 Output Total 900 ml Balance -900 ml Output Urine Total 900 ml Physical Exam Abdomen: Soft, Other (dressings present) Heart: Regular rate Extremities: No clubbing General: Alert HEENT: Atraumatic Lungs: Clear to auscultation MUSCULOSKELETAL: No swelling Neck: Supple Neuro: Normal speech Psych/Mental Status: Mental status NL Skin: No breakdown Assessment Assessment FINAL DIAGNOSES:POD#2 1. The patient had a chronic cholecystitis with gallstones with massive intra-abdominal adhesions. The patient underwent laparotomy with cholecystectomy, enterolysis. 2. Hypertension. 3. Hypothyroidism. 4. Vitiligo. 5. Obesity. PLAN: doing well ambulate iv fluids wbc down ,noraml range. spoke with staff. ?diet. At this time, was admit to the hospital. The patient had NG tube, [place] removed. PT, OT. The patient is on losartan for blood pressure, is under good control and Synthroid, we will change it to IV while the patient is n.p.o., change it to oral later on. DVT prevention. We will do incentive spirometry. Comment Review of Relevant I have reviewed the following items ferzo (where applicable) has been applied. Labs Laboratory Tests Test 03/06/19 05:30 White Blood Count 10.4 x10^3/uL (4.0-11.0) Red Blood Count 3.81 x10^6/uL (4.30-5.70) Hemoglobin 11.5 g/dL (13.0-17.5) Hematocrit 35.0 % (39.0-53.0) Mean Corpuscular Volume 92 fL (79-100) Mean Corpuscular Hemoglobin 30 pg (25-35) Mean Corpuscular Hemoglobin Concent 33 g/dL (31-37) Red Cell Distribution Width 14.2 % (11.5-14.5) Platelet Count 224 x10^3/uL (140-400) Neutrophils (%) (Auto) 76 % (31-73) Lymphocytes (%) (Auto) 14 % (24-48) Monocytes (%) (Auto) 10 % (0-9) Eosinophils (%) (Auto) 0 % (0-3) Basophils (%) (Auto) 0 % (0-3) Neutrophils # (Auto) 7.9 x10^3uL (1.8-7.7) Lymphocytes # (Auto) 1.4 x10^3/uL (1.0-4.8) Monocytes # (Auto) 1.0 x10^3/uL (0.0-1.1) Eosinophils # (Auto) 0.0 x10^3/uL (0.0-0.7) Basophils # (Auto) 0.0 x10^3/uL (0.0-0.2) Sodium Level 138 mmol/L (136-145) Potassium Level 4.2 mmol/L (3.5-5.1) Chloride Level 104 mmol/L (98-107) Carbon Dioxide Level 27 mmol/L (21-32) Anion Gap 7 (6-14) Blood Urea Nitrogen 16 mg/dL (8-26) Creatinine 1.0 mg/dL (0.7-1.3) Estimated GFR (Cockcroft-Gault) 76.5 BUN/Creatinine Ratio 16 (6-20) Glucose Level 102 mg/dL (70-99) Calcium Level 8.4 mg/dL (8.5-10.1) Total Bilirubin 0.6 mg/dL (0.2-1.0) Aspartate Amino Transf (AST/SGOT) 32 U/L (15-37) Alanine Aminotransferase (ALT/SGPT) 55 U/L (16-63) Alkaline Phosphatase 74 U/L (46-116) Total Protein 6.5 g/dL (6.4-8.2) Albumin 2.8 g/dL (3.4-5.0) Albumin/Globulin Ratio 0.8 (1.0-1.7) Medications Current Medications Levothyroxine Sodium 100 mcg/ Sodium Chloride 5 ml @ 100 mls/hr Q3DAYS IVP ; Start 03/11/19 at 09:00 Vitals/I & O Vital Sign - Last 24 Hours 03/05/19 03/05/19 03/05/19 03/05/19 11:00 15:00 19:00 20:00 Temp 98.6 98.0 98.0 98.6 98.0 98.0 Pulse 70 59 59 Resp 18 18 18 B/P (MAP) 122/54 (76) 108/52 (70) 108/52 (70) Pulse Ox 98 97 97 O2 Delivery Nasal Cannula Nasal Cannula Nasal Cannula Nasal Cannula O2 Flow Rate 2.0 2.0 2.0 2.0 03/05/19 03/06/19 03/06/19 03/06/19 23:00 03:00 07:00 09:56 Temp 98.0 98.6 97.7 98.0 98.6 97.7 Pulse 69 59 64 Resp 18 18 16 B/P (MAP) 129/72 (91) 127/54 (78) 110/60 (77) Pulse Ox 97 98 95 O2 Delivery Nasal Cannula Nasal Cannula Nasal Cannula Room Air O2 Flow Rate 2.0 2.0 2.0 Intake and Output 03/05/19 03/05/19 03/06/19 15:00 23:00 07:00 Output Total 300 ml 600 ml Balance -300 ml -600 ml CATHI JORGE MD Mar 06, 2019 10:28
[2019-03-06 11:00] VITALS: BP 106/52
[2019-03-06 15:00] VITALS: BP 132/66
[2019-03-06 19:00] VITALS: BP 141/69
[2019-03-06 23:00] VITALS: BP 144/80
[2019-03-07 03:00] VITALS: BP 146/69
[2019-03-07 03:31] LABS: BASO % 1 % (0-3); EOS # 0.1 x10^3/uL (0.0-0.7); EOS % 1 % (0-3); HEMOGLOBIN 11.7 g/dL (13.0-17.5); LYMPH # 1.1 x10^3/uL (1.0-4.8); LYMPH % 11 % (24-48); MEAN CORPUSCULAR HEMOGLOBIN 31 pg (25-35); MEAN CORPUSCULAR HGB CONC 33 g/dL (31-37); MEAN CORPUSCULAR VOLUME 92 fL (79-100); MONO # 0.8 x10^3/uL (0.0-1.1); MONO % 8 % (0-9); NEUT # 8.2 x10^3uL (1.8-7.7); NEUT % 81 % (31-73); PLATELET COUNT 228 x10^3/uL (140-400); RED BLOOD COUNT 3.82 x10^6/uL (4.30-5.70); RED CELL DISTRIBUTION WIDTH 14.2 % (11.5-14.5); WHITE BLOOD COUNT 10.2 x10^3/uL (4.0-11.0)
[2019-03-07 03:48] LABS: ALBUMIN 2.8 g/dL (3.4-5.0); ALBUMIN/GLOBULIN RATIO 0.7 (1.0-1.7); CALCIUM 8.5 mg/dL (8.5-10.1); CREATININE 0.8 mg/dL (0.7-1.3); GFR 98.9; POTASSIUM 3.9 mmol/L (3.5-5.1); TOTAL BILIRUBIN 0.6 mg/dL (0.2-1.0); TOTAL PROTEIN 6.8 g/dL (6.4-8.2)
[2019-03-07] MEDS: POTASSIUM CL 20MEQ-0.45% NACL 1,000 ML IV SCH ×2 (03:51→15:45)
[2019-03-07 07:00] VITALS: BP 149/95
[2019-03-07] MEDS: FAMOTIDINE 20 MG/2 ML VIAL IVP SCH ×2 (08:06→20:34)
--- NOTE | 2019-03-07 08:46 | NUR ---
SW following for discharge planning. Discussed with RN, pt is from home with , Armenian speaking. RN advised no SW needs, possible discharge home today or tomorrow (03/08/19).
--- NOTE | 2019-03-07 09:42 | PDOC ---
SURGICAL PROGRESS NOTE Subjective Doing well, reports having flatus, He is tolerating clear liquids and urinating without difficulty. He is compliant with the incentive spirometry. He denies experiencing any or breathing difficulties. Lab OK and he has no fever and the dressing changed and the wound is healing without complications. Plan to advance diet and discharge in AM if OK with Med team. He is up and about without problems. Vital Signs Vital Signs Date Time Temp Pulse Resp B/P (MAP) Pulse Ox O2 Delivery O2 Flow Rate FiO2 03/07/19 07:00 98.5 58 18 149/95 (113) 95 Room Air 98.5 03/06/19 11:00 2.0 I&O Intake and Output 03/07/19 07:00 Intake Total 120 ml Output Total 650 ml Balance -530 ml Intake Oral 120 ml Output Urine Total 650 ml # Voids 2 Labs Laboratory Tests Test 03/06/19 05:30 03/07/19 03:00 White Blood Count 10.4 x10^3/uL (4.0-11.0) 10.2 x10^3/uL (4.0-11.0) Red Blood Count 3.81 x10^6/uL (4.30-5.70) 3.82 x10^6/uL (4.30-5.70) Hemoglobin 11.5 g/dL (13.0-17.5) 11.7 g/dL (13.0-17.5) Hematocrit 35.0 % (39.0-53.0) 35.0 % (39.0-53.0) Mean Corpuscular Volume 92 fL (79-100) 92 fL (79-100) Mean Corpuscular Hemoglobin 30 pg (25-35) 31 pg (25-35) Mean Corpuscular Hemoglobin Concent 33 g/dL (31-37) 33 g/dL (31-37) Red Cell Distribution Width 14.2 % (11.5-14.5) 14.2 % (11.5-14.5) Platelet Count 224 x10^3/uL (140-400) 228 x10^3/uL (140-400) Neutrophils (%) (Auto) 76 % (31-73) 81 % (31-73) Lymphocytes (%) (Auto) 14 % (24-48) 11 % (24-48) Monocytes (%) (Auto) 10 % (0-9) 8 % (0-9) Eosinophils (%) (Auto) 0 % (0-3) 1 % (0-3) Basophils (%) (Auto) 0 % (0-3) 1 % (0-3) Neutrophils # (Auto) 7.9 x10^3uL (1.8-7.7) 8.2 x10^3uL (1.8-7.7) Lymphocytes # (Auto) 1.4 x10^3/uL (1.0-4.8) 1.1 x10^3/uL (1.0-4.8) Monocytes # (Auto) 1.0 x10^3/uL (0.0-1.1) 0.8 x10^3/uL (0.0-1.1) Eosinophils # (Auto) 0.0 x10^3/uL (0.0-0.7) 0.1 x10^3/uL (0.0-0.7) Basophils # (Auto) 0.0 x10^3/uL (0.0-0.2) 0.0 x10^3/uL (0.0-0.2) Sodium Level 138 mmol/L (136-145) 138 mmol/L (136-145) Potassium Level 4.2 mmol/L (3.5-5.1) 3.9 mmol/L (3.5-5.1) Chloride Level 104 mmol/L (98-107) 101 mmol/L (98-107) Carbon Dioxide Level 27 mmol/L (21-32) 26 mmol/L (21-32) Anion Gap 7 (6-14) 11 (6-14) Blood Urea Nitrogen 16 mg/dL (8-26) 11 mg/dL (8-26) Creatinine 1.0 mg/dL (0.7-1.3) 0.8 mg/dL (0.7-1.3) Estimated GFR (Cockcroft-Gault) 76.5 98.9 BUN/Creatinine Ratio 16 (6-20) 14 (6-20) Glucose Level 102 mg/dL (70-99) 112 mg/dL (70-99) Calcium Level 8.4 mg/dL (8.5-10.1) 8.5 mg/dL (8.5-10.1) Total Bilirubin 0.6 mg/dL (0.2-1.0) 0.6 mg/dL (0.2-1.0) Aspartate Amino Transf (AST/SGOT) 32 U/L (15-37) 38 U/L (15-37) Alanine Aminotransferase (ALT/SGPT) 55 U/L (16-63) 59 U/L (16-63) Alkaline Phosphatase 74 U/L (46-116) 106 U/L (46-116) Total Protein 6.5 g/dL (6.4-8.2) 6.8 g/dL (6.4-8.2) Albumin 2.8 g/dL (3.4-5.0) 2.8 g/dL (3.4-5.0) Albumin/Globulin Ratio 0.8 (1.0-1.7) 0.7 (1.0-1.7) Laboratory Tests Test 03/07/19 03:00 White Blood Count 10.2 x10^3/uL (4.0-11.0) Red Blood Count 3.82 x10^6/uL (4.30-5.70) Hemoglobin 11.7 g/dL (13.0-17.5) Hematocrit 35.0 % (39.0-53.0) Mean Corpuscular Volume 92 fL (79-100) Mean Corpuscular Hemoglobin 31 pg (25-35) Mean Corpuscular Hemoglobin Concent 33 g/dL (31-37) Red Cell Distribution Width 14.2 % (11.5-14.5) Platelet Count 228 x10^3/uL (140-400) Neutrophils (%) (Auto) 81 % (31-73) Lymphocytes (%) (Auto) 11 % (24-48) Monocytes (%) (Auto) 8 % (0-9) Eosinophils (%) (Auto) 1 % (0-3) Basophils (%) (Auto) 1 % (0-3) Neutrophils # (Auto) 8.2 x10^3uL (1.8-7.7) Lymphocytes # (Auto) 1.1 x10^3/uL (1.0-4.8) Monocytes # (Auto) 0.8 x10^3/uL (0.0-1.1) Eosinophils # (Auto) 0.1 x10^3/uL (0.0-0.7) Basophils # (Auto) 0.0 x10^3/uL (0.0-0.2) Sodium Level 138 mmol/L (136-145) Potassium Level 3.9 mmol/L (3.5-5.1) Chloride Level 101 mmol/L (98-107) Carbon Dioxide Level 26 mmol/L (21-32) Anion Gap 11 (6-14) Blood Urea Nitrogen 11 mg/dL (8-26) Creatinine 0.8 mg/dL (0.7-1.3) Estimated GFR (Cockcroft-Gault) 98.9 BUN/Creatinine Ratio 14 (6-20) Glucose Level 112 mg/dL (70-99) Calcium Level 8.5 mg/dL (8.5-10.1) Total Bilirubin 0.6 mg/dL (0.2-1.0) Aspartate Amino Transf (AST/SGOT) 38 U/L (15-37) Alanine Aminotransferase (ALT/SGPT) 59 U/L (16-63) Alkaline Phosphatase 106 U/L (46-116) Total Protein 6.8 g/dL (6.4-8.2) Albumin 2.8 g/dL (3.4-5.0) Albumin/Globulin Ratio 0.7 (1.0-1.7) WATSON PEREZ MD Mar 07, 2019 09:42
--- NOTE | 2019-03-07 09:42 | PDOC ---
PROGRESS NOTES Subjective Subjective feeling better,started on clear liquid diet Objective Objective Vital Signs Date Time Temp Pulse Resp B/P (MAP) Pulse Ox O2 Delivery O2 Flow Rate FiO2 03/07/19 07:00 98.5 58 18 149/95 (113) 95 Room Air 98.5 03/06/19 11:00 2.0 Intake and Output 03/07/19 06:59 Intake Total 120 ml Output Total 650 ml Balance -530 ml Intake Oral 120 ml Output Urine Total 650 ml # Voids 2 Physical Exam Abdomen: Soft, Other (dressings present) Heart: Regular rate Extremities: No clubbing General: Alert HEENT: Atraumatic Lungs: Clear to auscultation MUSCULOSKELETAL: No swelling Neck: Supple Neuro: Normal speech Psych/Mental Status: Mental status NL Skin: No breakdown Assessment Assessment FINAL DIAGNOSES:POD#2 1. The patient had a chronic cholecystitis with gallstones with massive intra-abdominal adhesions. The patient underwent laparotomy with cholecystectomy, enterolysis. 2. Hypertension. 3. Hypothyroidism. 4. Vitiligo. 5. Obesity. PLAN: POD#4 doing well ambulate iv fluids wbc down ,noraml range. spoke with staff. clear liquid diet. resume home meds Comment Review of Relevant I have reviewed the following items feroz (where applicable) has been applied. Labs Laboratory Tests Test 03/07/19 03:00 White Blood Count 10.2 x10^3/uL (4.0-11.0) Red Blood Count 3.82 x10^6/uL (4.30-5.70) Hemoglobin 11.7 g/dL (13.0-17.5) Hematocrit 35.0 % (39.0-53.0) Mean Corpuscular Volume 92 fL (79-100) Mean Corpuscular Hemoglobin 31 pg (25-35) Mean Corpuscular Hemoglobin Concent 33 g/dL (31-37) Red Cell Distribution Width 14.2 % (11.5-14.5) Platelet Count 228 x10^3/uL (140-400) Neutrophils (%) (Auto) 81 % (31-73) Lymphocytes (%) (Auto) 11 % (24-48) Monocytes (%) (Auto) 8 % (0-9) Eosinophils (%) (Auto) 1 % (0-3) Basophils (%) (Auto) 1 % (0-3) Neutrophils # (Auto) 8.2 x10^3uL (1.8-7.7) Lymphocytes # (Auto) 1.1 x10^3/uL (1.0-4.8) Monocytes # (Auto) 0.8 x10^3/uL (0.0-1.1) Eosinophils # (Auto) 0.1 x10^3/uL (0.0-0.7) Basophils # (Auto) 0.0 x10^3/uL (0.0-0.2) Sodium Level 138 mmol/L (136-145) Potassium Level 3.9 mmol/L (3.5-5.1) Chloride Level 101 mmol/L (98-107) Carbon Dioxide Level 26 mmol/L (21-32) Anion Gap 11 (6-14) Blood Urea Nitrogen 11 mg/dL (8-26) Creatinine 0.8 mg/dL (0.7-1.3) Estimated GFR (Cockcroft-Gault) 98.9 BUN/Creatinine Ratio 14 (6-20) Glucose Level 112 mg/dL (70-99) Calcium Level 8.5 mg/dL (8.5-10.1) Total Bilirubin 0.6 mg/dL (0.2-1.0) Aspartate Amino Transf (AST/SGOT) 38 U/L (15-37) Alanine Aminotransferase (ALT/SGPT) 59 U/L (16-63) Alkaline Phosphatase 106 U/L (46-116) Total Protein 6.8 g/dL (6.4-8.2) Albumin 2.8 g/dL (3.4-5.0) Albumin/Globulin Ratio 0.7 (1.0-1.7) Medications Current Medications Levothyroxine Sodium 100 mcg/ Sodium Chloride 5 ml @ 100 mls/hr Q3DAYS IVP ; Start 03/11/19 at 09:00 Vitals/I & O Vital Sign - Last 24 Hours 03/06/19 03/06/19 03/06/19 03/06/19 09:56 10:26 11:00 15:00 Temp 98.1 98.4 98.1 98.4 Pulse 62 65 Resp 16 18 B/P (MAP) 106/52 (70) 132/66 (88) Pulse Ox 96 98 O2 Delivery Room Air Room Air Nasal Cannula Room Air O2 Flow Rate 2.0 03/06/19 03/06/19 03/06/19 03/07/19 19:00 20:00 23:00 03:00 Temp 99.0 99.3 98.7 99.0 99.3 98.7 Pulse 62 63 61 Resp 18 18 18 B/P (MAP) 141/69 (93) 144/80 (101) 146/69 (94) Pulse Ox 97 96 94 O2 Delivery Room Air Room Air Room Air Room Air 03/07/19 03/07/19 07:00 07:00 Temp 98.5 98.5 Pulse 58 Resp 18 B/P (MAP) 149/95 (113) Pulse Ox 95 O2 Delivery Room Air Room Air Intake and Output 03/06/19 03/06/19 03/07/19 14:59 22:59 06:59 Intake Total 120 ml Output Total 650 ml Balance -650 ml 120 ml CATHI JORGE MD Mar 07, 2019 09:42
[2019-03-07 11:00] VITALS: BP 131/90
[2019-03-07] MEDS: LEVOTHYROXINE 125 MCG TABLET PO SCH (12:02)
[2019-03-07] MEDS: LOSARTAN POTASSIUM 50 MG TABLET. PO SCH (12:02)
[2019-03-07 15:00] VITALS: BP 117/67
[2019-03-07] MEDS: HEPARIN for SUB-Q USE 5,000 UNIT/ML VIAL. SQ SCH ×2 (15:43→21:40)
--- NOTE | 2019-03-07 16:07 | PATHOLOGY ---
[facility] Accession Number: [id number] . 01 Material submitted: . GALLBLADDER . 01 Clinical history: . Cholelithiasis . 02 Diagnosis: Gallbladder, cholecystectomy: - Cholelithiasis. - Chronic cholecystitis. ([facility] 03/07/2019) [facility]/03/07/2019 . 02 Comment: There is no evidence of malignancy. ([facility] 03/07[facility]2019) . 02 Electronically signed: . Shlomo Cummings MD, Pathologist NPI- [id number] . 01 Gross description: . The specimen is received in formalin, labeled "Dinh Matt, gallbladder". Received is a previously opened gallbladder measuring 6.2 x 3.5 x 1.4 cm in greatest dimensions displaying a pink-schmid serosal surface. The cystic neck is not grossly distinct. Further opening of the gallbladder reveals a pink-schmid to pink-red mucosa with a gallbladder wall thickness of 0.1 cm. Multiple small black calculi are present and no masses or lesions are noted grossly. Balance Truer sections are submitted in cassette A1. ([facility]; 03/04/2019) QAC/QAC . 02 Pathologist provided ICD-10: K80.10 . 02 CPT . 097959 Specimen Comment: A courtesy copy of this report has been sent to Specimen Comment: [phone], . Specimen Comment: Report sent to / DR LEIJA Performed at: 01 [facility] [address], [place] [id number] MD Willie Florence MD Phone: [phone] Performed at: 02 [facility] [address] [place], [place] [id number] MD Shlomo Cummings MD Phone: [phone]
[2019-03-07 19:00] VITALS: BP 148/65
[2019-03-07 23:00] VITALS: BP 124/63
[2019-03-08 03:00] VITALS: BP 133/55
[2019-03-08] MEDS: POTASSIUM CL 20MEQ-0.45% NACL 1,000 ML IV SCH (04:04)
[2019-03-08] MEDS: LEVOTHYROXINE 125 MCG TABLET PO SCH (05:36)
[2019-03-08] MEDS: HEPARIN for SUB-Q USE 5,000 UNIT/ML VIAL. SQ SCH ×2 (05:40→14:00)
[2019-03-08 06:38] LABS: BASO # 0.1 x10^3/uL (0.0-0.2); BASO % 1 % (0-3); EOS # 0.2 x10^3/uL (0.0-0.7); EOS % 3 % (0-3); HEMATOCRIT 36.7 % (39.0-53.0); LYMPH # 1.9 x10^3/uL (1.0-4.8); LYMPH % 23 % (24-48); MEAN CORPUSCULAR HEMOGLOBIN 30 pg (25-35); MEAN CORPUSCULAR HGB CONC 33 g/dL (31-37); MEAN CORPUSCULAR VOLUME 92 fL (79-100); MONO # 0.7 x10^3/uL (0.0-1.1); MONO % 8 % (0-9); NEUT # 5.3 x10^3uL (1.8-7.7); NEUT % 65 % (31-73); PLATELET COUNT 278 x10^3/uL (140-400); RED BLOOD COUNT 4.01 x10^6/uL (4.30-5.70); WHITE BLOOD COUNT 8.2 x10^3/uL (4.0-11.0)
[2019-03-08 06:54] LABS: ALBUMIN 2.7 g/dL (3.4-5.0); ALBUMIN/GLOBULIN RATIO 0.6 (1.0-1.7); CREATININE 0.9 mg/dL (0.7-1.3); GFR 86.4; POTASSIUM 4.1 mmol/L (3.5-5.1); TOTAL BILIRUBIN 0.5 mg/dL (0.2-1.0)
[2019-03-08 07:00] VITALS: BP 127/62
[2019-03-08] MEDS: FAMOTIDINE 20 MG/2 ML VIAL IVP SCH (08:26)
[2019-03-08] MEDS: LOSARTAN POTASSIUM 50 MG TABLET. PO SCH (08:26)
--- NOTE | 2019-03-08 09:23 | PDOC ---
SURGICAL PROGRESS NOTE Subjective Doing well, alert and in no acute distress. He reports flatus and a small bowel movement, denies experiencing any nausea or vomiting, and is able to get out of bed to urinate without difficulty. WBC down and he has no fever.Is ready for discharge as he i reluctant based on past experience at [facility]. Home today if he desires. If not, I will see him in the am. Will see in office POD 8-9. Vital Signs Vital Signs Date Time Temp Pulse Resp B/P (MAP) Pulse Ox O2 Delivery O2 Flow Rate FiO2 03/08/19 08:26 56 127/62 03/08/19 07:25 Room Air 03/08/19 07:00 97.6 16 96 97.6 I&O Intake and Output 03/08/19 07:00 Intake Total 300 ml Output Total 1000 ml Balance -700 ml Intake Oral 300 ml Output Urine Total 1000 ml # Voids 2 Labs Laboratory Tests Test 03/07/19 03:00 03/08/19 05:45 White Blood Count 10.2 x10^3/uL (4.0-11.0) 8.2 x10^3/uL (4.0-11.0) Red Blood Count 3.82 x10^6/uL (4.30-5.70) 4.01 x10^6/uL (4.30-5.70) Hemoglobin 11.7 g/dL (13.0-17.5) 12.0 g/dL (13.0-17.5) Hematocrit 35.0 % (39.0-53.0) 36.7 % (39.0-53.0) Mean Corpuscular Volume 92 fL (79-100) 92 fL (79-100) Mean Corpuscular Hemoglobin 31 pg (25-35) 30 pg (25-35) Mean Corpuscular Hemoglobin Concent 33 g/dL (31-37) 33 g/dL (31-37) Red Cell Distribution Width 14.2 % (11.5-14.5) 14.0 % (11.5-14.5) Platelet Count 228 x10^3/uL (140-400) 278 x10^3/uL (140-400) Neutrophils (%) (Auto) 81 % (31-73) 65 % (31-73) Lymphocytes (%) (Auto) 11 % (24-48) 23 % (24-48) Monocytes (%) (Auto) 8 % (0-9) 8 % (0-9) Eosinophils (%) (Auto) 1 % (0-3) 3 % (0-3) Basophils (%) (Auto) 1 % (0-3) 1 % (0-3) Neutrophils # (Auto) 8.2 x10^3uL (1.8-7.7) 5.3 x10^3uL (1.8-7.7) Lymphocytes # (Auto) 1.1 x10^3/uL (1.0-4.8) 1.9 x10^3/uL (1.0-4.8) Monocytes # (Auto) 0.8 x10^3/uL (0.0-1.1) 0.7 x10^3/uL (0.0-1.1) Eosinophils # (Auto) 0.1 x10^3/uL (0.0-0.7) 0.2 x10^3/uL (0.0-0.7) Basophils # (Auto) 0.0 x10^3/uL (0.0-0.2) 0.1 x10^3/uL (0.0-0.2) Sodium Level 138 mmol/L (136-145) 139 mmol/L (136-145) Potassium Level 3.9 mmol/L (3.5-5.1) 4.1 mmol/L (3.5-5.1) Chloride Level 101 mmol/L (98-107) 102 mmol/L (98-107) Carbon Dioxide Level 26 mmol/L (21-32) 28 mmol/L (21-32) Anion Gap 11 (6-14) 9 (6-14) Blood Urea Nitrogen 11 mg/dL (8-26) 9 mg/dL (8-26) Creatinine 0.8 mg/dL (0.7-1.3) 0.9 mg/dL (0.7-1.3) Estimated GFR (Cockcroft-Gault) 98.9 86.4 BUN/Creatinine Ratio 14 (6-20) 10 (6-20) Glucose Level 112 mg/dL (70-99) 108 mg/dL (70-99) Calcium Level 8.5 mg/dL (8.5-10.1) 9.0 mg/dL (8.5-10.1) Total Bilirubin 0.6 mg/dL (0.2-1.0) 0.5 mg/dL (0.2-1.0) Aspartate Amino Transf (AST/SGOT) 38 U/L (15-37) 41 U/L (15-37) Alanine Aminotransferase (ALT/SGPT) 59 U/L (16-63) 68 U/L (16-63) Alkaline Phosphatase 106 U/L (46-116) 142 U/L (46-116) Total Protein 6.8 g/dL (6.4-8.2) 7.0 g/dL (6.4-8.2) Albumin 2.8 g/dL (3.4-5.0) 2.7 g/dL (3.4-5.0) Albumin/Globulin Ratio 0.7 (1.0-1.7) 0.6 (1.0-1.7) Laboratory Tests Test 03/08/19 05:45 White Blood Count 8.2 x10^3/uL (4.0-11.0) Red Blood Count 4.01 x10^6/uL (4.30-5.70) Hemoglobin 12.0 g/dL (13.0-17.5) Hematocrit 36.7 % (39.0-53.0) Mean Corpuscular Volume 92 fL (79-100) Mean Corpuscular Hemoglobin 30 pg (25-35) Mean Corpuscular Hemoglobin Concent 33 g/dL (31-37) Red Cell Distribution Width 14.0 % (11.5-14.5) Platelet Count 278 x10^3/uL (140-400) Neutrophils (%) (Auto) 65 % (31-73) Lymphocytes (%) (Auto) 23 % (24-48) Monocytes (%) (Auto) 8 % (0-9) Eosinophils (%) (Auto) 3 % (0-3) Basophils (%) (Auto) 1 % (0-3) Neutrophils # (Auto) 5.3 x10^3uL (1.8-7.7) Lymphocytes # (Auto) 1.9 x10^3/uL (1.0-4.8) Monocytes # (Auto) 0.7 x10^3/uL (0.0-1.1) Eosinophils # (Auto) 0.2 x10^3/uL (0.0-0.7) Basophils # (Auto) 0.1 x10^3/uL (0.0-0.2) Sodium Level 139 mmol/L (136-145) Potassium Level 4.1 mmol/L (3.5-5.1) Chloride Level 102 mmol/L (98-107) Carbon Dioxide Level 28 mmol/L (21-32) Anion Gap 9 (6-14) Blood Urea Nitrogen 9 mg/dL (8-26) Creatinine 0.9 mg/dL (0.7-1.3) Estimated GFR (Cockcroft-Gault) 86.4 BUN/Creatinine Ratio 10 (6-20) Glucose Level 108 mg/dL (70-99) Calcium Level 9.0 mg/dL (8.5-10.1) Total Bilirubin 0.5 mg/dL (0.2-1.0) Aspartate Amino Transf (AST/SGOT) 41 U/L (15-37) Alanine Aminotransferase (ALT/SGPT) 68 U/L (16-63) Alkaline Phosphatase 142 U/L (46-116) Total Protein 7.0 g/dL (6.4-8.2) Albumin 2.7 g/dL (3.4-5.0) Albumin/Globulin Ratio 0.6 (1.0-1.7) WATSON PEREZ MD Mar 08, 2019 09:23
--- NOTE | 2019-03-08 09:56 | PDOC ---
PROGRESS NOTES Subjective Subjective tolerating diet Objective Objective Vital Signs Date Time Temp Pulse Resp B/P (MAP) Pulse Ox O2 Delivery O2 Flow Rate FiO2 03/08/19 08:26 56 127/62 03/08/19 07:25 Room Air 03/08/19 07:00 97.6 16 96 97.6 Intake and Output 03/08/19 07:00 Intake Total 300 ml Output Total 1000 ml Balance -700 ml Intake Oral 300 ml Output Urine Total 1000 ml # Voids 2 Physical Exam Abdomen: Soft, Other (dressings present) Heart: Regular rate Extremities: No clubbing General: Alert HEENT: Atraumatic Lungs: Clear to auscultation MUSCULOSKELETAL: No swelling Neck: Supple Neuro: Normal speech Psych/Mental Status: Mental status NL Skin: No breakdown Assessment Assessment FINAL DIAGNOSES:POD#2 1. The patient had a chronic cholecystitis with gallstones with massive intra-abdominal adhesions. The patient underwent laparotomy with cholecystectomy, enterolysis. 2. Hypertension. 3. Hypothyroidism. 4. Vitiligo. 5. Obesity. PLAN: POD#4 doing well ambulate iv fluids wbc down ,noraml range. spoke with staff. advance diet. resume home meds Comment Review of Relevant I have reviewed the following items feroz (where applicable) has been applied. Labs Laboratory Tests Test 03/08/19 05:45 White Blood Count 8.2 x10^3/uL (4.0-11.0) Red Blood Count 4.01 x10^6/uL (4.30-5.70) Hemoglobin 12.0 g/dL (13.0-17.5) Hematocrit 36.7 % (39.0-53.0) Mean Corpuscular Volume 92 fL (79-100) Mean Corpuscular Hemoglobin 30 pg (25-35) Mean Corpuscular Hemoglobin Concent 33 g/dL (31-37) Red Cell Distribution Width 14.0 % (11.5-14.5) Platelet Count 278 x10^3/uL (140-400) Neutrophils (%) (Auto) 65 % (31-73) Lymphocytes (%) (Auto) 23 % (24-48) Monocytes (%) (Auto) 8 % (0-9) Eosinophils (%) (Auto) 3 % (0-3) Basophils (%) (Auto) 1 % (0-3) Neutrophils # (Auto) 5.3 x10^3uL (1.8-7.7) Lymphocytes # (Auto) 1.9 x10^3/uL (1.0-4.8) Monocytes # (Auto) 0.7 x10^3/uL (0.0-1.1) Eosinophils # (Auto) 0.2 x10^3/uL (0.0-0.7) Basophils # (Auto) 0.1 x10^3/uL (0.0-0.2) Sodium Level 139 mmol/L (136-145) Potassium Level 4.1 mmol/L (3.5-5.1) Chloride Level 102 mmol/L (98-107) Carbon Dioxide Level 28 mmol/L (21-32) Anion Gap 9 (6-14) Blood Urea Nitrogen 9 mg/dL (8-26) Creatinine 0.9 mg/dL (0.7-1.3) Estimated GFR (Cockcroft-Gault) 86.4 BUN/Creatinine Ratio 10 (6-20) Glucose Level 108 mg/dL (70-99) Calcium Level 9.0 mg/dL (8.5-10.1) Total Bilirubin 0.5 mg/dL (0.2-1.0) Aspartate Amino Transf (AST/SGOT) 41 U/L (15-37) Alanine Aminotransferase (ALT/SGPT) 68 U/L (16-63) Alkaline Phosphatase 142 U/L (46-116) Total Protein 7.0 g/dL (6.4-8.2) Albumin 2.7 g/dL (3.4-5.0) Albumin/Globulin Ratio 0.6 (1.0-1.7) Medications Current Medications Heparin Sodium (Porcine) (Heparin Sodium) 5,000 unit Q8HRS SQ Last administered on 03/08/19at 05:40; Start 03/07/19 at 14:00 Levothyroxine Sodium (Synthroid) 125 mcg DAILY06 PO Last administered on at 05:36; Start 03/07/19 at 10:30 Levothyroxine Sodium 100 mcg/ Sodium Chloride 5 ml @ 100 mls/hr Q3DAYS IVP ; Start 03/11/19 at 09:00; Stop 03/11/19 at 09:00; Status DC Losartan Potassium (Cozaar) 50 mg DAILY PO Last administered on 03/08/19at 08:26 ; Start 03/07/19 at 10:00 Vitals/I & O Vital Sign - Last 24 Hours 03/07/19 03/07/19 03/07/19 03/07/19 11:00 12:02 15:00 19:00 Temp 98.7 98.5 98.1 98.7 98.5 98.1 Pulse 71 71 82 63 Resp 18 18 18 B/P (MAP) 131/90 (104) 131/90 117/67 (84) 148/65 (92) Pulse Ox 96 95 96 O2 Delivery Room Air Room Air Room Air 03/07/19 03/07/19 03/08/19 03/08/19 20:00 23:00 03:00 07:00 Temp 99.0 98.6 97.6 99.0 98.6 97.6 Pulse 52 56 56 Resp 18 16 16 B/P (MAP) 124/63 (83) 133/55 (81) 127/62 (83) Pulse Ox 99 98 96 O2 Delivery Room Air Room Air Room Air Room Air 03/08/19 03/08/19 07:25 08:26 Pulse 56 B/P (MAP) 127/62 O2 Delivery Room Air Intake and Output 03/07/19 03/07/19 03/08/19 15:00 23:00 07:00 Intake Total 300 ml Output Total 1000 ml Balance 300 ml -1000 ml CATHI JORGE MD Mar 08, 2019 09:56
[2019-03-08 11:00] VITALS: BP 138/61
--- NOTE | 2019-03-08 12:03 | NUR ---
SW following. Discussed with RN, still on [employer] and needing to tolerate diet. RN advised possible discharge today, no SW needs.
[2019-03-08 15:00] VITALS: BP 125/56
--- NOTE | 2019-03-08 16:00 | NUR ---
Pt. discharged to home with Rx given per Dr. Comer, verbalized understanding of discharge instructions. Instructions given with assistance from JAMESON Alas. Abd binder in place, abd dressing CDI. Dressing change supplies given to pt's . Pt. and awaiting ride home.
--- NOTE | 2019-03-08 18:22 | NUR ---
Pt taken to front door via WC, family with pt.
[2019-03-11] MEDS ORDERED: LEVOTHYROXINE SODIUM INJ 100 MCG in NORMAL SALINE 5 ML IVP SCH (09:00)
--- NOTE | 2019-04-05 13:17 | DS ---
DATE OF DISCHARGE: 03/08/2019 HOSPITAL COURSE: The patient was admitted on 03/04/2019 because of chronic cholecystitis and cholelithiasis, which have been symptomatic. On the day of admission, he had an uneventful open cholecystectomy with operative cholangiogram. There were many adhesions from the previous surgery and we could not do it laparoscopically and did not even try. It took a while to get all the adhesions down, but he did have in fact an uneventful cholecystectomy with a normal cholangiogram. Postoperatively, he did well. He did have the ileus, which was expected for 2-3 days postoperatively. He began having flatus and we gave him liquids. His lab data during the hospital stay was unremarkable, with a white count going back down to normal and a normal bilirubin. 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 At any rate, postoperatively, he did well. Eventually, he was taking a regular diet and had no difficulty, had normal GI function, and therefore was discharged. The dressing had been changed. There was no evidence of infection or any other problems and the alfie were left in as he was instructed on no strenuous activity. He will wear a binder and I will see him on about postoperative day #10 in the office. IMPRESSION: 1. Intra-abdominal adhesions. 2. Hypertension. 3. Chronic cholecystitis and cholelithiasis. WATSON PEREZ MD DR: JEZ/linda JOB#: [id number] / [id number] JAMES
== END 2019-03-08 18:24 | disposition home or self-care (01) | DRG 336 ==
LOC: OPSVCIP 07:32 → 4 NORTH 14:25
PROVIDERS: ADMIT Specialist; ATTEND Specialist
PROC: 0DNW0ZZ Release Peritoneum, Open Approach (ICD-10-PCS; 2019-03-04)
PROC: BF101ZZ Fluoroscopy of Bile Ducts using Low Osmolar Contrast (ICD-10-PCS; 2019-03-04)
PROC: 0FT40ZZ Resection of Gallbladder, Open Approach (ICD-10-PCS; principal; 2019-03-04 09:00)
DX: K66.0 Peritoneal adhesions (postprocedural) (postinfection) (principal); K80.10 Calculus of gallbladder with chronic cholecystitis without obstruction; D62 Acute posthemorrhagic anemia; K52.9 Noninfective gastroenteritis and colitis, unspecified; K82.8 Other specified diseases of gallbladder; I10 Essential (primary) hypertension; E03.9 Hypothyroidism, unspecified; L80 Vitiligo; E66.9 Obesity, unspecified; Z68.39 Body mass index [BMI] 39.0-39.9, adult; Z88.0 Allergy status to penicillin; Z88.8 Allergy status to other drugs, medicaments and biological substances; Z79.899 Other long term (current) drug therapy
CPT/HCPCS: 36415; 74300; 80053; 85007; 85025; 85610; 88304; A7015; C1765; J0171; J0330; J1100; J1644; J1885; J2001; J2250; J2270; J2405; J2704; J2710; J3010; J3490; J7120; Q9967; 97110; 97116; 97530; 97535